=== PATIENT | female | born 1945 | race Asian ===

== ENCOUNTER 2021-11-16 18:58 | Emergency (ER) | payer OTHER ==
[~2021-11-16] VITALS: Ht 170.2 cm; Wt 73.6 kg
[2021-11-16 19:00] VITALS: BP 142/54; TEMP 98.7
[2021-11-16 19:09] LABS: PLATELET COUNT 291 K/uL (152-353)
[2021-11-16 19:22] LABS: POTASSIUM 3.9 mmol/L (3.6-5.2)
[2021-11-16] MEDS ORDERED: MEMA5TAB PO (21:26)
[2021-11-16] MEDS ORDERED: TRAZ50TA36 PO (21:26)
[2021-11-16] MEDS ORDERED: QUET25TA2 PO (21:27)
[2021-11-16] MEDS ORDERED: LORA0.5T17 PO (21:28)
[2021-11-16] MEDS ORDERED: BUSPIRONE10 MG PO (21:29)
[2021-11-16] MEDS ORDERED: VITAMIN D2000 UNI3 PO (21:32)
[2021-11-16] MEDS ORDERED: ASPIRIN81 M1 PO (21:32)
[2021-11-16] MEDS ORDERED: DORZSOL OPTH (21:33)
[2021-11-16] MEDS ORDERED: TRAVATAN Z0.004 % OPTH (21:34)
== END 2021-11-16 19:58 | disposition still patient (30) ==
LOC: ED 18:58
PROVIDERS: Emergency Medicine Emergency Medical Services
DX: F03.91 Unspecified dementia, unspecified severity, with behavioral disturbance (principal); U07.1 COVID-19; Z04.6 Encounter for general psychiatric examination, requested by authority
CPT/HCPCS: 36415; 80053; 85027; 87635; 93005; 99283; U0003